=== PATIENT | female | born 1975 | race American Indian/Alaskan Native ===

== ENCOUNTER 2018-08-16 17:54 | Emergency (ER) | payer SELFPAY ==
--- NOTE | 2018-08-16 19:13 | Emergency Department Report ---
Minor Respiratory - HPI Chief Complaint: Upper Respiratory Infection Stated Complaint: FLU LIKE Time Seen by Provider: 08/16/18 19:04 Pain Location: Throat, Other (headache 2/then frontal) Severity: moderate Minor Respiratory: Yes Rhinorrhea (nasal congestion), Yes Sore Throat (6/10), Yes Able to Tolerate Fluids, Yes Cough (dry cough), No Ear Pain, No Sick Contacts, No Hemoptysis, No Chest Pain, No Shortness of Breath, No Fever Other History: This is a 43-year-old female here report that she did have an nasal congestion and runny nose over the last week but it has been getting worse over the last 3 days and now she has headache frontally, sore throat. Denies any fever or chills. Denies any chest pain or shortness of breath. Denies any nausea or vomiting. Denies any neck pain or stiffness. [id number] cough and cold is not help then. Pain is 6/then the throat worse with swallowing and no alleviating factors. Denies any drooling. ED Review of Systems ROS: Stated complaint: FLU LIKE Other details as noted in HPI Constitutional: denies: chills, fever Eyes: denies: eye discharge ENT: throat pain, congestion. denies: ear pain, dental pain, epistaxis Respiratory: cough. denies: shortness of breath, SOB with exertion, SOB at rest, stridor, wheezing Cardiovascular: denies: chest pain, palpitations, edema, syncope Gastrointestinal: denies: nausea, vomiting Musculoskeletal: denies: back pain, joint swelling, arthralgia, myalgia Skin: denies: rash Neurological: headache. denies: numbness, paresthesias, confusion, abnormal gait, vertigo ED Past Medical Hx - Past Medical History Previous Medical History?: Yes Hx Hypertension: Yes Hx Asthma: Yes - Surgical History Past Surgical History?: Yes Additional Surgical History: - Family History Family history: hypertension - Social History Smoking Status: Current Every Day Smoker Substance Use Type: None - Medications Home Medications: Home Medications Medication Instructions Recorded Confirmed Last Taken Type ALBUTEROL Inhaler(NF) [VENTOLIN 2 puff IH Q6H PRN 1 Days #1 inha 08/16/18 Unknown Rx Inhaler(NF)] Amoxicillin/K Clav Tab [Augmentin 1 tab PO Q12HR #20 tab 08/16/18 Unknown Rx 875MG TAB] Cetirizine HCl [ZyrTEC] 10 mg PO QAM 14 Days #14 capsule 08/16/18 Unknown Rx Fluticasone [Flonase] 1 spray NS QDAY 14 Days #1 bottle 08/16/18 Unknown Rx Ibuprofen [Motrin] 600 mg PO Q8H PRN #12 tablet 08/16/18 Unknown Rx guaiFENesin DM [Guaifenesin Dm 10 ml PO Q12H 5 Days #100 syrup 08/16/18 Unknown Rx Syrup] methylPREDNISolone [Medrol Dose 4 mg PO DAILY #1 tab.ds.pk 08/16/18 Unknown Rx Garett] Minor Respiratory Exam - Exam General: Vital signs noted. No distress. Alert and acting appropriately. This is a 43-year-old female well-nourished well-developed in no acute distress. HEENT: Yes Moist Mucous Membranes (uvula midline and oral airways patent), Yes Rhinorrhea (congested with clear drainage and erythema), Yes Frontal Tenderness, Yes Maxillary Tenderness, No Pharyngeal Erythema, No Pharyngeal Exudates, No Conjuctival Injection Ear: Neither TM Bulge (bilateral TM congested), Neither TM Erythema, Neither EAC Pain, Neither EAC Discharge Neck: Yes Supple (full range of motion and no C-spine tenderness), No Adenopathy Lungs: Yes Good Air Exchange, Yes Wheezes (scattered wheezing to upper lung weathers), Yes Ronchi (cleared with cough and), Yes Cough, No Stridor, No Labored Respirations, No Retractions, No Use of Accessory Muscles, No Other Abnormal Lung Sounds Heart: Yes Regular (sinus rhythm at), No Murmur ( 88 bpm) Abdomen: Yes Normal Bowel Sounds (in all quadrants), No Tenderness (in all quadrants), No Peritoneal Signs Skin: No Rash, No Edema Neurologic: Alert and oriented 3, no deficits. Musculoskeletal: Unremarkable. No cce. + 2 pulses in all extremities, no neurovascular compromise ED Course Vital Signs 08/16/18 17:57 Temperature 98.1 F Pulse Rate 88 Respiratory 18 Rate Blood Pressure 133/92 O2 Sat by Pulse 99 Oximetry - Reevaluation(s) Reevaluation #1: 08/16/18 19:24 Patient received Decadron 10 mg IM, DuoNeb 1 nebulizer emergency room which cleared her upper lung weathers. Augmentin 875 mg 1 tablet by mouth. She has sinusitis and bronchitis. ED Medical Decision Making - Medical Decision Making This is a 43-year-old female here report that she has been having in a week of symptoms of "cough, no headache or sore throat congestion. Patient physical finding for sinus infection with cough and proctitis. She was given DuoNeb 1 nebulizer and after evaluated lung sounds are clear. Her vital signs are stable she is afebrile. She was given Decadron 10 mg IM and Augmentin 875 mg 1 tablet by mouth to start treatment for bronchitis and sinus infection. I discussed diagnosis, treatment plan and medication the need to follow-up with her primary care physician in 3-5 days and she was understanding. Patient discharged home in stable condition with prescription for Motrin, DuoNeb, Augmentin, Zyrtec, Flonase and Medrol Dosepak. Critical care attestation.: If time is entered above; I have spent that time in minutes in the direct care of this critically ill patient, excluding procedure time. ED Disposition Clinical Impression: Bronchitis, acute Qualifiers: Bronchitis organism: other organism Qualified Code(s): J20.8 - Acute bronchitis due to other specified organisms Sinusitis, acute Qualifiers: Sinusitis location: unspecified location Recurrence: not specified as recurrent Qualified Code(s): J01.90 - Acute sinusitis, unspecified Disposition: DC-01 TO HOME OR SELFCARE Is pt being admited?: No Does the pt Need Aspirin: No Condition: Stable Instructions: Acute Bronchitis (ED), Sinusitis (ED), Pharyngitis (ED) Additional Instructions: Please follow up with your primary care physician and if he do not have a primary care physician follow-up with [facility] Take medication as prescribed If he condition worsens, return to the emergency room. See discharge instructions on bronchitis, sinusitis and pharyngitis. Prescriptions: ALBUTEROL Inhaler(NF) [VENTOLIN Inhaler(NF)] 2 puff IH Q6H PRN 1 Days #1 inha PRN Reason: cough and wheezing Amoxicillin/K Clav Tab [Augmentin 875MG TAB] 1 tab PO Q12HR #20 tab Cetirizine HCl [ZyrTEC] 10 mg PO QAM 14 Days #14 capsule Fluticasone [Flonase] 1 spray NS QDAY 14 Days #1 bottle guaiFENesin DM [Guaifenesin Dm Syrup] 10 ml PO Q12H 5 Days #100 syrup Ibuprofen [Motrin] 600 mg PO Q8H PRN #12 tablet PRN Reason: Pain methylPREDNISolone [Medrol Dose Garett] 4 mg PO DAILY #1 tab.ds.pk Referrals: [facility] [Outside] - 3-5 Days Forms: Work/School Release Form(ED)
[2018-08-16] MEDS ORDERED: DECADRON IM STA (19:15)
[2018-08-16] MEDS ORDERED: DUONEB *Not for PRN Use IH ONE (19:15)
[2018-08-16] MEDS ORDERED: AUGMENTIN 875 MG PO ONE (19:15)
[2018-08-17 14:30] VITALS: BP 141/91
== END 2018-08-16 19:59 | disposition home or self-care (01) ==
LOC: ED 17:54
DX: J20.9 Acute bronchitis, unspecified (principal); J01.90 Acute sinusitis, unspecified; I10 Essential (primary) hypertension; J45.909 Unspecified asthma, uncomplicated; F17.200 Nicotine dependence, unspecified, uncomplicated
CPT/HCPCS: 94640; 96372; 99283; J1100

== ENCOUNTER 2019-07-10 11:41 | Emergency (ER) | payer BC ==
--- NOTE | 2019-07-10 11:56 | Emergency Department Report ---
Chief Complaint: Urogenital-Female Stated Complaint: STD CHECK Time Seen by Provider: 07/10/19 11:52 - HPI History of Present Illness: pt states that she is not having symptoms at all no fever, vomiting, no abd pain, no dysuria, no discharge states she is here for an STD check no hx of STD PMHx HTN, states she does not take her medication no allergies to meds states that her partner was told he has an STD and she wanted to have a check up vitals are stable No clinical signs or symptoms of PID, TOA, pyelonephritis Patient is presenting with an non-medical emergency at this time she is requesting routine STD testing medical screening examination performed and there is no threat to life or limb at this time pt will be referred to the health department for a full STD panel and treatment as deemed necessary advised pt to please follow up with the health department and a primary care clinic in the next 2-3 days. return to the emergency room for any new or worsening symptoms or if begin experiencing symptoms such as abdominal pain, fever, vomiting, burning with urination, etc. MSE screening note: Focused history and physical exam performed. ED Disposition for MSE Clinical Impression: Concern about STD in female without diagnosis Disposition: Z-07 MED SCREENING EXAM-LEFT Is pt being admited?: No Does the pt Need Aspirin: No Condition: Stable Instructions: Sexually Transmitted Diseases (ED), Safe Sex (ED) Additional Instructions: please follow up with the health department and a primary care clinic in the next 2-3 days. return to the emergency room for any new or worsening symptoms or if begin experiencing symptoms such as abdominal pain, fever, vomiting, burning with urination, etc. Referrals: [facility] [Outside] - 2-3 Days [facility] [Outside] - 2-3 Days [facility] [Outside] - 2-3 Days ZENA SALINAS MD [Staff Physician] - 2-3 Days Time of Disposition: 11:55 Print Language: ROMANSH
[2019-07-10 11:57] VITALS: BP 147/88
== END 2019-07-10 11:58 | disposition left against medical advice (07) ==
LOC: ED 11:41
DX: Z11.3 Encounter for screening for infections with a predominantly sexual mode of transmission (principal)
CPT/HCPCS: 99282

== ENCOUNTER 2021-07-17 18:46 | Emergency (ER) | payer BC ==
[2021-07-17 19:46] VITALS: BP 183/95
[2021-07-17] MEDS ORDERED: ASPIRIN 325 MG TAB PO ONE (20:23)
[2021-07-17 20:51] LABS: Basophils % (Auto) 0.7 % (0.0-1.8); Eosinophils # (Auto) 0.2 K/mm3 (0.0-0.4); Eosinophils % (Auto) 3.7 % (0.0-4.3); Hematocrit 38.1 % (30.3-42.9); Hemoglobin 12.3 gm/dl (10.1-14.3); Lymphocytes # (Auto) 2.1 K/mm3 (1.2-5.4); Mean Corpuscular HGB Conc 32 % (30-34); Mean Corpuscular Volume 87 fl (79-97); Monocytes # (Auto) 0.3 K/mm3 (0.0-0.8); Monocytes % (Auto) 6.8 % (0.0-7.3); Platelet Count 240 K/mm3 (140-440); Red Blood Count 4.37 M/mm3 (3.65-5.03); Red Cell Distribution Width 15.3 % (13.2-15.2)
--- NOTE | 2021-07-17 21:03 | XRay Report ---
CHEST 1 VIEW 07/17/2021 8:44 PM INDICATION / CLINICAL INFORMATION: chest pain. COMPARISON: None available. FINDINGS: SUPPORT DEVICES: None. HEART / MEDIASTINUM: No significant abnormality. LUNGS / PLEURA: No significant pulmonary or pleural abnormality. No pneumothorax. ADDITIONAL FINDINGS: No significant additional findings. IMPRESSION: 1. No acute findings. Signer Name: Josue Mijares MD Signed: 07/17/2021 8:59 PM Workstation Name: [id number]
[2021-07-17 21:05] LABS: Alanine Aminotransferase 9 units/L (7-56); Albumin 4.2 g/dL (3.9-5); BUN/Creatinine Ratio 13; Blood Urea Nitrogen 9 mg/dL (7-17); Calcium 9.2 mg/dL (8.4-10.2); Hemolysis Index 70
[2021-07-17] MEDS ORDERED: predniSONE 20 MG TAB PO ONE (22:09)
[2021-07-17] MEDS ORDERED: KETOROLAC 30 MG/1 ML INJ IM ONE (22:09)
[2021-07-17] MEDS ORDERED: GABAPENTIN 300 MG CAP PO ONE (22:10)
--- NOTE | 2021-07-18 00:59 | Emergency Department Report ---
ED General Adult HPI - General Chief complaint: Chest Pain Stated complaint: CH4EST PAIN Source: patient Mode of arrival: Ambulatory Limitations: No Limitations - History of Present Illness Initial comments: Patient is a 46-year-old -L[place] female with a history of hypertension and asthma who presented to the ED with complaint of acute onset persistent right-sided chest pain and low back pain for the last 8 hours after heavy lifting at work. Patient states that the pain in left chest wall is persistent and constant and worse with any movement or palpation. Patient also states that the pain in her low back is also persistent and worse with any activities. Patient denies dizziness, syncope, nausea and vomiting, headache, fever and chills, cough, sore throat, abdominal pain, numbness and tingling or weakness of upper and lower extremities bilaterally, change in vision or dysuria, urinary frequency and urgency. MD Complaint: low back pain; right-sided chest pain -: Sudden, hour(s) (8) Location: chest, back (lower) Radiation: non-radiation Severity scale (0 -10): 8 Quality: aching, sharp Consistency: constant Improves with: none Worsens with: movement Associated Symptoms: denies other symptoms, chest pain (Right-sided). denies: confusion, cough, diaphoresis, headaches, loss of appetite, malaise, nausea/v omiting, rash, seizure, shortness of breath, syncope, weakness Treatments Prior to Arrival: none - Related Data Previous Rx's Medication Instructions Recorded Last Taken Type ALBUTEROL Inhaler(NF) [VENTOLIN 2 puff IH Q6H PRN 1 Days #1 inha 08/16/18 Unknown Rx Inhaler(NF)] Amoxicillin/K Clav Tab [Augmentin 1 tab PO Q12HR #20 tab 08/16/18 Unknown Rx 875MG TAB] Cetirizine HCl [ZyrTEC] 10 mg PO QAM 14 Days #14 capsule 08/16/18 Unknown Rx Fluticasone [Flonase] 1 spray NS QDAY 14 Days #1 bottle 08/16/18 Unknown Rx Ibuprofen [Motrin] 600 mg PO Q8H PRN #12 tablet 08/16/18 Unknown Rx guaiFENesin DM [Guaifenesin Dm 10 ml PO Q12H 5 Days #100 syrup 08/16/18 Unknown Rx Syrup] methylPREDNISolone [Medrol Dose 4 mg PO DAILY #1 tab.ds.pk 08/16/18 Unknown Rx Garett] Baclofen 20 mg PO Q12H PRN #24 tablet 07/18/21 Unknown Rx Naproxen 500 mg PO Q12H PRN #30 tablet 07/18/21 Unknown Rx amLODIPine 10 mg PO DAILY #30 tab 07/18/21 Unknown Rx predniSONE [Deltasone] 40 mg PO QDAY #10 tab 07/18/21 Unknown Rx traMADoL [Ultram] 50 mg PO Q6HR PRN #10 tablet 07/18/21 Unknown Rx Allergies Allergy/AdvReac Type Severity Reaction Status Date / Time No Known Allergies Allergy Verified 07/17/21 19:38 ED Review of Systems ROS: Stated complaint: CH4EST PAIN Other details as noted in HPI Constitutional: denies: chills, fever Eyes: denies: eye pain, eye discharge, vision change ENT: denies: ear pain, throat pain Respiratory: denies: cough, shortness of breath, wheezing Cardiovascular: chest pain (Right-sided). denies: palpitations Endocrine: no symptoms reported Gastrointestinal: denies: abdominal pain, nausea, vomiting, diarrhea Genitourinary: denies: urgency, dysuria, discharge Musculoskeletal: back pain (Low back pain). denies: joint swelling, arthralgia Skin: denies: rash, lesions Neurological: denies: headache, weakness, paresthesias Psychiatric: denies: anxiety, depression Hematological/Lymphatic: denies: easy bleeding, easy bruising ED Past Medical Hx - Past Medical History Hx Hypertension: Yes Hx Asthma: Yes - Surgical History Additional Surgical History: - Social History Smoking Status: Current Every Day Smoker Substance Use Type: None, Marijuana - Medications Home Medications: Home Medications Medication Instructions Recorded Confirmed Last Taken Type ALBUTEROL Inhaler(NF) [VENTOLIN 2 puff IH Q6H PRN 1 Days #1 inha 08/16/18 Unknown Rx Inhaler(NF)] Amoxicillin/K Clav Tab [Augmentin 1 tab PO Q12HR #20 tab 08/16/18 Unknown Rx 875MG TAB] Cetirizine HCl [ZyrTEC] 10 mg PO QAM 14 Days #14 capsule 08/16/18 Unknown Rx Fluticasone [Flonase] 1 spray NS QDAY 14 Days #1 bottle 08/16/18 Unknown Rx Ibuprofen [Motrin] 600 mg PO Q8H PRN #12 tablet 08/16/18 Unknown Rx guaiFENesin DM [Guaifenesin Dm 10 ml PO Q12H 5 Days #100 syrup 08/16/18 Unknown Rx Syrup] methylPREDNISolone [Medrol Dose 4 mg PO DAILY #1 tab.ds.pk 08/16/18 Unknown Rx Garett] Baclofen 20 mg PO Q12H PRN #24 tablet 07/18/21 Unknown Rx Naproxen 500 mg PO Q12H PRN #30 tablet 07/18/21 Unknown Rx amLODIPine 10 mg PO DAILY #30 tab 07/18/21 Unknown Rx predniSONE [Deltasone] 40 mg PO QDAY #10 tab 07/18/21 Unknown Rx traMADoL [Ultram] 50 mg PO Q6HR PRN #10 tablet 07/18/21 Unknown Rx ED Physical Exam - General Limitations: No Limitations General appearance: alert, in no apparent distress - Head Head exam: Present: atraumatic, normocephalic, normal inspection - Eye Eye exam: Present: normal appearance, PERRL, EOMI Pupils: Present: normal accommodation - ENT ENT exam: Present: normal exam, normal orophraynx, mucous membranes moist, TM's normal bilaterally, normal external ear exam - Neck Neck exam: Present: normal inspection, full ROM - Respiratory Respiratory exam: Present: normal lung sounds bilaterally, chest wall tenderness (Palpable reproducible right-sided chest wall tenderness). Absent: respiratory distress, wheezes, rales, rhonchi, accessory muscle use, decreased breath so unds, prolonged expiratory - Cardiovascular Cardiovascular Exam: Present: regular rate, normal rhythm, normal heart sounds. Absent: systolic murmur, diastolic murmur, rubs, gallop - GI/Abdominal GI/Abdominal exam: Present: soft, normal bowel sounds. Absent: tenderness, guarding, rebound, hyperactive bowel sounds, hypoactive bowel sounds, organomegaly - Extremities Exam Extremities exam: Present: normal inspection, full ROM, normal capillary refill - Back Exam Back exam: Present: normal inspection, full ROM, tenderness (Palpable lumbosac ral paraspinal musculoskeletal tenderness), muscle spasm, paraspinal tenderness. Absent: CVA tenderness (R), CVA tenderness (L), vertebral tenderness - Neurological Exam Neurological exam: Present: alert, oriented X3, CN II-XII intact, normal gait, reflexes normal - Psychiatric Psychiatric exam: Present: normal affect, normal mood - Skin Skin exam: Present: warm, dry, intact, normal color. Absent: rash ED Course Vital Signs 07/17/21 07/17/21 19:45 19:46 Temperature 98.4 F Pulse Rate 68 Respiratory 17 Rate Blood Pressure 183/95 O2 Sat by Pulse 99 Oximetry ED Medical Decision Making - Lab Data Result diagrams: 07/17/21 20:31 07/17/21 20:31 - Radiology Data Radiology results: report reviewed, image reviewed [facility] [address] [place] [address] XRay Report Signed Patient: DEB PETTIT MR#: [id number] : 1975 Acct:[id number] Age/Sex: 46 / F ADM Date: 07/17/21 Loc: ED Attending Dr: Ordering Physician: JOVANY SANFORD Date of Service: 07/17/21 Procedure(s): XR chest 1V ap Accession Number(s): [id number] cc: JOVANY SANFORD Fluoro Time In Minutes: CHEST 1 VIEW 07/17/2021 8:44 PM INDICATION / CLINICAL INFORMATION: chest pain. COMPARISON: None available. FINDINGS: SUPPORT DEVICES: None. HEART / MEDIASTINUM: No significant abnormality. LUNGS / PLEURA: No significant pulmonary or pleural abnormality. No pneumothorax. ADDITIONAL FINDINGS: No significant additional findings. IMPRESSION: 1. No acute findings. Signer Name: Josue Mijares MD Signed: 07/17/2021 8:59 PM Workstation Name: [id number] Transcribed By: DB Dictated By: JOSUE MIJARES MD Electronically Authenticated By: JOSUE MIJARES MD Signed Date/Time: 07/17/212058 DD/ 58 TD/TT: Print - Medical Decision Making This is a 46-year-old -L[place]anese female with a history of hypertension and asthma who presented to the ED with complaint of acute onset persistent left- sided chest pain and low back pain for the last 8 hours after heavy lifting at work. Patient states that the pain in left chest wall is persistent and constant and worse with any movement or palpation. Patient also states that the pain in her low back is also persistent and worse with any activities. In the ED, patient is alert and oriented x3 and is not in any distress. Patient is however hypertensive in triage, stating that she has not been on blood pressure medications for over 1 year after her primary care physician advised against taking blood pressure medication. Patient stated that she had previously been taking amlodipine 10 mg p.o. x1 daily. EKG shows normal sinus rhythm with no ST or T wave abnormalities. Chest x-ray showed no acute cardiopulmonary abnormalities or pneumonitis. Patient was treated for pain in the ED. Lab test results were reviewed and are all nonactionable including initial and 3-hour troponin levels. Patient symptoms are likely musculoskeletal based on the reproducibility of the chest pain on physical exam and the fact the patient performs heavy lifting at work. Patient heart score is 2 and she is PERC nega tive per Wells criteria. On reevaluation, patient's pain is well controlled medication. Patient will discharge home on medications for pain and advised to follow-up with her primary care physician in 5 to 7 days for reevaluation. Patient also given initial 30-day prescription of amlodipine 10 mg daily. Patient is advised return to the ED immediately if symptoms get worse. - Differential Diagnosis ACS; costochondritis; muscle strain; PE; pneumonia; Critical care attestation.: If time is entered above; I have spent that time in minutes in the direct care of this critically ill patient, excluding procedure time. ED Disposition Clinical Impression: Acute costochondritis, Nonspecific chest pain, Spasm of muscle of lower back Muscle strain of chest wall Qualifiers: Encounter type: initial encounter Qualified Code(s): S29.011A - Strain of muscle and tendon of front wall of thorax, initial encounter Disposition: 01 HOME / SELF CARE / HOMELESS Is pt being admited?: No Does the pt Need Aspirin: No Condition: Stable Instructions: Costochondritis, [id number], Muscle Strain, [id number], Nonspecific Chest Pain, Adult, [id number], Back Injury Prevention, [id number] Additional Instructions: All lab test results were reviewed and are all nonactionable. Chest x-ray showed no acute cardiopulmonary abnormalities or pneumonitis. Your symptoms are likely musculoskeletal following heavy lifting at work. Therefore take medication with food, drink plenty of fluids follow-up with your primary care physician in 5 to 7 days for reevaluation. Return to the ED immediately if symptoms get worse. Prescriptions: amLODIPine 10 mg PO DAILY #30 tab Baclofen 20 mg PO Q12H PRN #24 tablet PRN Reason: Muscle Spasm predniSONE [Deltasone] 40 mg PO QDAY #10 tab Naproxen 500 mg PO Q12H PRN #30 tablet PRN Reason: Pain , Severe (7-10) traMADoL [Ultram] 50 mg PO Q6HR PRN #10 tablet PRN Reason: Pain Referrals: ZENA SALINAS MD [Staff Physician] - 3-5 Days Forms: Work/School Release Form(ED) Time of Disposition: 01:02 Print Language: TRINIDADIAN
--- NOTE | 2021-07-18 12:13 | Electrocardiograph Report ---
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
== END 2021-07-18 01:15 | disposition home or self-care (01) ==
LOC: ED 18:46
DX: S29.011A Strain of muscle and tendon of front wall of thorax, initial encounter (principal); M94.0 Chondrocostal junction syndrome [Tietze]; R07.9 Chest pain, unspecified; I10 Essential (primary) hypertension; J45.909 Unspecified asthma, uncomplicated; M62.830 Muscle spasm of back; F12.90 Cannabis use, unspecified, uncomplicated; F17.200 Nicotine dependence, unspecified, uncomplicated; X58.XXXA Exposure to other specified factors, initial encounter; Y93.89 Activity, other specified; Y92.89 Other specified places as the place of occurrence of the external cause; Y99.8 Other external cause status
CPT/HCPCS: 36415; 71045; 80053; 83880; 84484; 85025; 93005; 96372; 99284; J1885; J7512